=== PATIENT | female | born 1960 | race Caucasian/White ===

== ENCOUNTER 2022-06-01 09:18 | Inpatient (IN) | payer SELFPAY ==
[2022-06-01] MEDS ORDERED: Sodium Chloride 0.9% 10 ML Syringe FLUSH PRN ×2 (09:21→15:54)
[2022-06-01] MEDS ORDERED: Sodium Chloride 0.9% 2.5 ML Syringe FLUSH PRN ×2 (09:21→15:54)
[2022-06-01] MEDS ORDERED: Sodium Chloride 0.9% 1,000 ML IV ONE (09:22)
[2022-06-01] MEDS ORDERED: methylPREDNISolone Sodium Succinate 125 MG/2 ML SDV IVPUSH ONE (09:44)
[2022-06-01] MEDS ORDERED: Albuterol/Ipratropium 3.0-0.5 MG/3 ML Neb Soln NEB ONE ×2 (09:44→10:45)
[2022-06-01] MEDS ORDERED: Diltiazem 100 MG in Sodium Chloride 0.9% 100 ML IV SCH (09:45)
[2022-06-01] MEDS ORDERED: Cefepime 2 GM in Premix Bag 1 BAG IV ONE (10:00)
[2022-06-01] MEDS ORDERED: Cefepime 2 GM in Sodium Chloride 0.9% 50 ML IV ONE (10:15)
[2022-06-01 10:19] LABS: CORONAVIRUS COVID-19 NAA NEGATIVE (NEGATIVE); INFLUENZA A NAA NEGATIVE (NEGATIVE); INFLUENZA B NAA NEGATIVE (NEGATIVE); RESPIRATORY SYNCYTIAL VIR NAA NEGATIVE (NEGATIVE)
[2022-06-01 10:24] LABS: CARBON DIOXIDE,CO2 27.2 mmol/L (21.0-32.0); POTASSIUM,K 3.7 mmol/L (3.5-5.1)
[2022-06-01] MEDS ORDERED: Diltiazem 120 MG Cap.CD PO ONE ×2 (10:39→11:41)
[2022-06-01] MEDS ORDERED: Iopamidol 755 MG/ML 500 ML Multipack Bottle IVPUSH ONE (12:19)
[2022-06-01] MEDS ORDERED: Polyethylene Glycol 3350 Powder 17 GM Packet PO PRN (15:54)
[2022-06-01] MEDS ORDERED: Ondansetron 4 MG/2 ML SDV IVPUSH PRN (15:54)
[2022-06-01] MEDS: Piperacillin/Tazobactam 4.5 GM in Sodium Chloride 0.9% 100 ML IV SCH ×2 (17:03→21:38)
[2022-06-01] MEDS: methylPREDNISolone Sodium Succinate 40 MG/1 ML SDV IVPUSH SCH (17:57)
[2022-06-01] MEDS: Azithromycin 500 MG in Sodium Chloride 0.9% 250 ML IV SCH (18:00)
[2022-06-01] MEDS ORDERED: Magnesium Sulfate/Water 2 GM in Premix Bag 1 BAG IV ONE (19:00)
[2022-06-01] MEDS ORDERED: Docusate Sodium 100 MG Cap PO PRN (21:00)
[2022-06-01] MEDS: Heparin Sodium 5,000 Units/ML Vial SUBCUT SCH (21:37)
[2022-06-01] MEDS: Pantoprazole 40 MG in Sodium Chloride 0.9% 10 ML IVPUSH SCH (21:38)
[2022-06-01] MEDS: Lactated Ringers 1,000 ML IV SCH (21:39)
[2022-06-02] MEDS: Piperacillin/Tazobactam 4.5 GM in Sodium Chloride 0.9% 100 ML IV SCH ×4 (04:13→21:48)
[2022-06-02] MEDS: methylPREDNISolone Sodium Succinate 40 MG/1 ML SDV IVPUSH SCH ×2 (05:36→17:24)
[2022-06-02 06:58] LABS: CARBON DIOXIDE,CO2 25.8 mmol/L (21.0-32.0); POTASSIUM,K 3.7 mmol/L (3.5-5.1)
[2022-06-02] MEDS: Lactated Ringers 1,000 ML IV SCH ×2 (08:36→21:48)
[2022-06-02] MEDS: Diltiazem 120 MG Cap.CD PO SCH (08:39)
[2022-06-02] MEDS: Heparin Sodium 5,000 Units/ML Vial SUBCUT SCH ×2 (08:42→21:48)
[2022-06-02] MEDS: Azithromycin 500 MG in Sodium Chloride 0.9% 250 ML IV SCH (17:24)
[2022-06-02] MEDS: Pantoprazole 40 MG in Sodium Chloride 0.9% 10 ML IVPUSH SCH (21:48)
[2022-06-03] MEDS: Piperacillin/Tazobactam 4.5 GM in Sodium Chloride 0.9% 100 ML IV SCH (03:38)
[2022-06-03] MEDS: Albuterol/Ipratropium 3.0-0.5 MG/3 ML Neb Soln NEB PRN ×2 (03:38→11:09)
[2022-06-03] MEDS: methylPREDNISolone Sodium Succinate 40 MG/1 ML SDV IVPUSH SCH ×2 (06:11→17:29)
[2022-06-03 07:21] LABS: CARBON DIOXIDE,CO2 26.9 mmol/L (21.0-32.0); POTASSIUM,K 3.7 mmol/L (3.5-5.1)
[2022-06-03] MEDS: Heparin Sodium 5,000 Units/ML Vial SUBCUT SCH ×2 (08:05→21:47)
[2022-06-03] MEDS: Diltiazem 120 MG Cap.CD PO SCH (08:52)
[2022-06-03] MEDS: Lactated Ringers 1,000 ML IV SCH ×2 (09:10→19:35)
[2022-06-03] MEDS: cefTRIAXone 1 GM in Sodium Chloride 0.9% 50 ML IV SCH (10:56)
[2022-06-03] MEDS: Azithromycin 500 MG in Sodium Chloride 0.9% 250 ML IV SCH (17:34)
[2022-06-03] MEDS: Pantoprazole 40 MG in Sodium Chloride 0.9% 10 ML IVPUSH SCH (21:47)
[2022-06-04] MEDS: Albuterol/Ipratropium 3.0-0.5 MG/3 ML Neb Soln NEB PRN ×2 (05:40→17:43)
[2022-06-04] MEDS: methylPREDNISolone Sodium Succinate 40 MG/1 ML SDV IVPUSH SCH ×2 (06:01→17:43)
[2022-06-04 06:57] LABS: CARBON DIOXIDE,CO2 29.8 mmol/L (21.0-32.0); POTASSIUM,K 3.2 mmol/L (3.5-5.1)
[2022-06-04] MEDS: Lactated Ringers 1,000 ML IV SCH (07:47)
[2022-06-04] MEDS ORDERED: Potassium Chloride 20 MEQ Tab.ER PO ONE ×3 (08:00→14:15)
[2022-06-04] MEDS: Diltiazem 120 MG Cap.CD PO SCH (08:29)
[2022-06-04] MEDS: Heparin Sodium 5,000 Units/ML Vial SUBCUT SCH ×2 (08:30→21:41)
[2022-06-04] MEDS: cefTRIAXone 1 GM in Sodium Chloride 0.9% 50 ML IV SCH (10:41)
[2022-06-04] MEDS: Acetaminophen 325 MG Tab PO PRN (14:12)
[2022-06-04] MEDS: Azithromycin 500 MG in Sodium Chloride 0.9% 250 ML IV SCH (19:43)
[2022-06-04] MEDS: Pantoprazole 40 MG in Sodium Chloride 0.9% 10 ML IVPUSH SCH (21:37)
[2022-06-05] MEDS: methylPREDNISolone Sodium Succinate 40 MG/1 ML SDV IVPUSH SCH (06:25)
[2022-06-05 06:54] LABS: CARBON DIOXIDE,CO2 31.7 mmol/L (21.0-32.0); POTASSIUM,K 3.7 mmol/L (3.5-5.1)
[2022-06-05] MEDS: Diltiazem 120 MG Cap.CD PO SCH (08:43)
[2022-06-05] MEDS: Heparin Sodium 5,000 Units/ML Vial SUBCUT SCH ×2 (08:43→22:02)
[2022-06-05] MEDS ORDERED: Iron Polysaccharides Complex 150 MG Cap PO SCH (10:00)
[2022-06-05] MEDS: cefTRIAXone 1 GM in Sodium Chloride 0.9% 50 ML IV SCH ×2 (11:49→12:21)
[2022-06-05] MEDS: Iron Polysaccharides Complex 150 MG Cap PO SCH (12:21)
[2022-06-05] MEDS: Azithromycin 500 MG in Sodium Chloride 0.9% 250 ML IV SCH (18:05)
[2022-06-05] MEDS: Acetaminophen 325 MG Tab PO PRN (18:05)
[2022-06-05] MEDS: Albuterol/Ipratropium 3.0-0.5 MG/3 ML Neb Soln NEB PRN (22:01)
[2022-06-05] MEDS: Pantoprazole 40 MG in Sodium Chloride 0.9% 10 ML IVPUSH SCH (22:01)
[2022-06-06 06:49] LABS: CARBON DIOXIDE,CO2 33.9 mmol/L (21.0-32.0); POTASSIUM,K 3.4 mmol/L (3.5-5.1)
[2022-06-06] MEDS ORDERED: Potassium Chloride 20 MEQ Tab.ER PO ONE (07:48)
[2022-06-06] MEDS: Diltiazem 120 MG Cap.CD PO SCH (08:17)
[2022-06-06] MEDS: Iron Polysaccharides Complex 150 MG Cap PO SCH (08:18)
[2022-06-06] MEDS: Heparin Sodium 5,000 Units/ML Vial SUBCUT SCH ×2 (08:19→21:08)
[2022-06-06] MEDS: cefTRIAXone 1 GM in Sodium Chloride 0.9% 50 ML IV SCH (12:42)
[2022-06-06] MEDS: Azithromycin 500 MG in Sodium Chloride 0.9% 250 ML IV SCH (17:12)
[2022-06-06] MEDS: Acetaminophen 325 MG Tab PO PRN (19:26)
[2022-06-06] MEDS: Pantoprazole 40 MG Tab.CR PO SCH (21:08)
[2022-06-07] MEDS ORDERED: Potassium Chloride 20 MEQ Tab.ER PO ONE ×2 (07:05→09:30)
[2022-06-07 07:37] LABS: POTASSIUM,K 3.9 mmol/L (3.5-5.1)
[2022-06-07] MEDS: Heparin Sodium 5,000 Units/ML Vial SUBCUT SCH ×2 (09:21→21:20)
[2022-06-07] MEDS: Iron Polysaccharides Complex 150 MG Cap PO SCH (09:22)
[2022-06-07] MEDS: Diltiazem 120 MG Cap.CD PO SCH (09:28)
[2022-06-07] MEDS: cefTRIAXone 1 GM in Sodium Chloride 0.9% 50 ML IV SCH (13:23)
[2022-06-07] MEDS ORDERED: Cyclobenzaprine 5 MG Tab PO PRN (15:45)
[2022-06-07] MEDS ORDERED: traMADol 50 MG Tab PO ONE (15:49)
[2022-06-07] MEDS: Azithromycin 500 MG in Sodium Chloride 0.9% 250 ML IV SCH (18:14)
[2022-06-07] MEDS: Albuterol/Ipratropium 3.0-0.5 MG/3 ML Neb Soln NEB SCH ×2 (18:18→21:19)
[2022-06-07] MEDS ORDERED: Iopamidol 755 MG/ML 500 ML Multipack Bottle IVPUSH STA (20:44)
[2022-06-07] MEDS: Pantoprazole 40 MG Tab.CR PO SCH (21:19)
[2022-06-08 00:30] LABS: CORONAVIRUS COVID-19 NAA NEGATIVE (NEGATIVE); INFLUENZA A NAA NEGATIVE (NEGATIVE); INFLUENZA B NAA NEGATIVE (NEGATIVE); RESPIRATORY SYNCYTIAL VIR NAA NEGATIVE (NEGATIVE)
[2022-06-08] MEDS: Albuterol/Ipratropium 3.0-0.5 MG/3 ML Neb Soln NEB SCH ×6 (02:06→22:49)
[2022-06-08 05:41] LABS: CARBON DIOXIDE,CO2 33.2 mmol/L (21.0-32.0)
[2022-06-08] MEDS: Diltiazem 120 MG Cap.CD PO SCH (08:08)
[2022-06-08] MEDS: Iron Polysaccharides Complex 150 MG Cap PO SCH (08:08)
[2022-06-08] MEDS: Heparin Sodium 5,000 Units/ML Vial SUBCUT SCH ×2 (08:09→22:49)
[2022-06-08] MEDS ORDERED: Magnesium Sulfate/Water 2 GM in Premix Bag 1 BAG IV ONE (09:18)
[2022-06-08] MEDS: predniSONE 20 MG Tab PO SCH (09:34)
[2022-06-08] MEDS: cefTRIAXone 1 GM in Sodium Chloride 0.9% 50 ML IV SCH (12:33)
[2022-06-08] MEDS: Azithromycin 500 MG in Sodium Chloride 0.9% 250 ML IV SCH (17:05)
[2022-06-08] MEDS: Pantoprazole 40 MG Tab.CR PO SCH (22:49)
[2022-06-09] MEDS: Albuterol/Ipratropium 3.0-0.5 MG/3 ML Neb Soln NEB SCH ×4 (02:45→13:30)
[2022-06-09 06:38] LABS: CARBON DIOXIDE,CO2 31.5 mmol/L (21.0-32.0); POTASSIUM,K 3.5 mmol/L (3.5-5.1)
[2022-06-09] MEDS: predniSONE 20 MG Tab PO SCH (08:17)
[2022-06-09] MEDS: Diltiazem 120 MG Cap.CD PO SCH (08:17)
[2022-06-09] MEDS: Heparin Sodium 5,000 Units/ML Vial SUBCUT SCH (08:18)
[2022-06-09] MEDS: Iron Polysaccharides Complex 150 MG Cap PO SCH (08:18)
[2022-06-09] MEDS: cefTRIAXone 1 GM in Sodium Chloride 0.9% 50 ML IV SCH (11:48)
== END 2022-06-09 16:45 | disposition home health service (06) | DRG 177 ==
LOC: MW.ED 09:18 → MW.MS 10:51 → MW.ICU 06-07 18:02 → MW.MS 06-08 11:53
PROVIDERS: ADMIT Student in an Organized Health Care Education/Training Program; ATTEND Internal Medicine
DX: J69.0 Pneumonitis due to inhalation of food and vomit (principal); J96.01 Acute respiratory failure with hypoxia; M62.82 Rhabdomyolysis; J15.6 Pneumonia due to other Gram-negative bacteria; Z20.822 Contact with and (suspected) exposure to COVID-19; I48.91 Unspecified atrial fibrillation; I10 Essential (primary) hypertension; E78.00 Pure hypercholesterolemia, unspecified; J45.909 Unspecified asthma, uncomplicated; J43.9 Emphysema, unspecified; Z88.2 Allergy status to sulfonamides; Z88.1 Allergy status to other antibiotic agents; Z79.51 Long term (current) use of inhaled steroids; Z79.899 Other long term (current) drug therapy; Z87.891 Personal history of nicotine dependence; Z90.49 Acquired absence of other specified parts of digestive tract
CPT/HCPCS: 0241U; 36415; 36600; 71045; 71045-26; 71046; 71275; 71275-26; 80048; 80053; 80202; 81001; 82803; 82947; 83605; 83735; 83880; 84100; 84443; 84484; 85025; 87040; 87086; 87899; 92610-GN; 93005; 93306; 94640; 96365; 96367; 96368; 96375; 97110-GP; 97161-GP; 97530-GP; 99285-25; A9270-GY; C9113; J0456; J0692; J0696; J1644; J2543; J2920; J2930; J3370; J3475; J3490; J7030; J7050; J7120; J7620-GY; Q9967

== ENCOUNTER 2022-11-26 18:45 | Inpatient (IN) | payer MEDICAID ==
[2022-11-26] MEDS ORDERED: Albuterol/Ipratropium 3.0-0.5 MG/3 ML Neb Soln ONE (18:48)
[2022-11-26] MEDS ORDERED: Sodium Chloride 0.9% 2.5 ML Syringe FLUSH PRN (18:49)
[2022-11-26] MEDS ORDERED: Sodium Chloride 0.9% 10 ML Syringe FLUSH PRN (18:49)
[2022-11-26] MEDS ORDERED: Albuterol/Ipratropium 3.0-0.5 MG/3 ML Neb Soln NEB ONE (19:00)
[2022-11-26 19:04] LABS: BASOPHILS ABSOLUTE AUTO 0.1 K/uL (0.0-0.1); BASOPHILS PERCENT AUTO 0.4 % (0.0-1.5); EOSINOPHILS ABSOLUTE AUTO 0.1 K/uL (0.0-0.7); EOSINOPHILS PERCENT AUTO 0.6 % (0.0-7.0); HEMATOCRIT 38.8 % (36.0-46.0); LYMPHOCYTES ABSOLUTE AUTO 2.4 K/uL (0.6-2.4); LYMPHOCYTES PERCENT AUTO 20.2 % (16.0-40.0); MEAN CORPUSCULAR HEMOGLOBIN 29.7 pg (27.0-32.0); MEAN CORPUSCULAR HGB CONC 33.5 g/dL (31.0-37.0); MEAN CORPUSCULAR VOLUME 88.6 fL (80.0-98.0); MONOCYTES ABSOLUTE AUTO 0.8 K/uL (0.0-0.8); NEUTROPHILS ABSOLUTE AUTO 8.7 K/uL (1.4-5.7); NEUTROPHILS PERCENT AUTO 71.8 % (48.0-80.0); NRBC ABSOLUTE 0 K/uL; PLATELET COUNT,PLT 338 K/uL (150-400); RED BLOOD CELL COUNT 4.38 M/uL (4.30-5.90); WHITE BLOOD CELL COUNT,WBC 12.04 K/uL (4.0-11.0)
[2022-11-26 19:14] LABS: BASE EXCESS VENOUS -0.4 (-2.0-3.0); PH,VENOUS 7.33 (7.31-7.41)
[2022-11-26] MEDS ORDERED: Albuterol 0.083% 2.5 MG/3 ML Neb Soln NEB ONE (19:20)
[2022-11-26] MEDS ORDERED: methylPREDNISolone Sodium Succinate 125 MG/2 ML SDV IVPUSH ONE (19:21)
[2022-11-26 20:17] LABS: A/G RATIO 1.4 (0.9-1.6); ALBUMIN 4.5 g/dL (3.4-5.0); BILIRUBIN TOTAL 0.6 mg/dL (0.2-1.0); CALCIUM 10.2 mg/dL (8.5-10.1); CARBON DIOXIDE,CO2 24.2 mmol/L (21.0-32.0); CREATININE 0.9 mg/dL (0.6-1.0); EST CRCL DRUG DOSING (CG) 44.56 mL/min; POTASSIUM,K 4.3 mmol/L (3.5-5.1); PROTEIN TOTAL,TP 7.7 g/dL (6.4-8.2)
[2022-11-26 20:19] LABS: BICARBONATE,ARTERIAL 25 mEq/L (22-26); PCO2 ARTERIAL 43 mmHG (35-45); PO2 ARTERIAL 70 mmHG (80-105)
[2022-11-26 20:21] LABS: MAGNESIUM 1.6 mg/dL (1.8-2.4)
[2022-11-26] MEDS ORDERED: Ketorolac 30 MG/ML SDV IVPUSH ONE (20:26)
[2022-11-26] MEDS ORDERED: Iopamidol 755 MG/ML 500 ML Multipack Bottle IVPUSH ONE (21:32)
[2022-11-26] MEDS ORDERED: cefTRIAXone 1 GM in Sodium Chloride 0.9% 50 ML IV ONE (23:11)
[2022-11-27] MEDS ORDERED: Magnesium Sulfate/Water 2 GM in Premix Bag 1 BAG IV ONE (02:47)
[2022-11-27 06:11] LABS: BASOPHILS PERCENT AUTO 0.1 % (0.0-1.5); LYMPHOCYTES ABSOLUTE AUTO 0.6 K/uL (0.6-2.4); MEAN CORPUSCULAR HEMOGLOBIN 29.4 pg (27.0-32.0); MEAN CORPUSCULAR HGB CONC 33.3 g/dL (31.0-37.0); MEAN CORPUSCULAR VOLUME 88.2 fL (80.0-98.0); MONOCYTES ABSOLUTE AUTO 0.1 K/uL (0.0-0.8); MONOCYTES PERCENT AUTO 0.8 % (0.0-15.0); NEUTROPHILS ABSOLUTE AUTO 6.5 K/uL (1.4-5.7); NEUTROPHILS PERCENT AUTO 91.1 % (48.0-80.0); NRBC ABSOLUTE 0 K/uL; PLATELET COUNT,PLT 300 K/uL (150-400); RED BLOOD CELL COUNT 4.08 M/uL (4.30-5.90); WHITE BLOOD CELL COUNT,WBC 7.11 K/uL (4.0-11.0)
[2022-11-27 06:36] LABS: EST CRCL DRUG DOSING (CG) 46.11 mL/min; POTASSIUM,K 4.1 mmol/L (3.5-5.1)
[2022-11-27] MEDS ORDERED: methylPREDNISolone Sodium Succinate 40 MG/1 ML SDV IVPUSH ONE (10:00)
[2022-11-27] MEDS: Nicotine 21 MG/24 Hr Patch TRDERM SCH (10:15)
[2022-11-27] MEDS: Albuterol/Ipratropium 3.0-0.5 MG/3 ML Neb Soln NEB PRN (11:23)
[2022-11-27] MEDS: Acetaminophen 325 MG Tab PO PRN (17:45)
[2022-11-27] MEDS: cefTRIAXone 1 GM in Sodium Chloride 0.9% 50 ML IV SCH (22:42)
[2022-11-28] MEDS: Albuterol/Ipratropium 3.0-0.5 MG/3 ML Neb Soln NEB PRN (06:11)
[2022-11-28 06:34] LABS: BASOPHILS PERCENT AUTO 0.1 % (0.0-1.5); HEMOGLOBIN 11.8 g/dL (12.0-16.0); LYMPHOCYTES ABSOLUTE AUTO 1.5 K/uL (0.6-2.4); LYMPHOCYTES PERCENT AUTO 10.4 % (16.0-40.0); MEAN CORPUSCULAR HEMOGLOBIN 29.4 pg (27.0-32.0); MEAN CORPUSCULAR HGB CONC 32.8 g/dL (31.0-37.0); MEAN CORPUSCULAR VOLUME 89.8 fL (80.0-98.0); MONOCYTES ABSOLUTE AUTO 1.1 K/uL (0.0-0.8); MONOCYTES PERCENT AUTO 7.3 % (0.0-15.0); NEUTROPHILS ABSOLUTE AUTO 11.9 K/uL (1.4-5.7); NEUTROPHILS PERCENT AUTO 82.2 % (48.0-80.0); NRBC ABSOLUTE 0 K/uL; PLATELET COUNT,PLT 290 K/uL (150-400); RED BLOOD CELL COUNT 4.01 M/uL (4.30-5.90); WHITE BLOOD CELL COUNT,WBC 14.45 K/uL (4.0-11.0)
[2022-11-28 06:47] LABS: CALCIUM 10.1 mg/dL (8.5-10.1); CARBON DIOXIDE,CO2 27.5 mmol/L (21.0-32.0); CREATININE 0.8 mg/dL (0.6-1.0); EST CRCL DRUG DOSING (CG) 57.64 mL/min; POTASSIUM,K 4.7 mmol/L (3.5-5.1)
[2022-11-28] MEDS: Nicotine 21 MG/24 Hr Patch TRDERM SCH (08:09)
[2022-11-28] MEDS ORDERED: methylPREDNISolone Sodium Succinate 40 MG/1 ML SDV IM ONE (10:07)
[2022-11-28] MEDS: Acetaminophen 325 MG Tab PO PRN ×2 (11:59→17:15)
[2022-11-28] MEDS: methylPREDNISolone Sodium Succinate 40 MG/1 ML SDV IVPUSH SCH (12:00)
[2022-11-28] MEDS: Albuterol/Ipratropium 3.0-0.5 MG/3 ML Neb Soln NEB SCH ×4 (12:53→21:54)
[2022-11-28] MEDS: Ibuprofen 400 MG Tab PO PRN (18:44)
[2022-11-28] MEDS: cefTRIAXone 1 GM in Sodium Chloride 0.9% 50 ML IV SCH (22:00)
[2022-11-29] MEDS: Albuterol/Ipratropium 3.0-0.5 MG/3 ML Neb Soln NEB SCH ×6 (02:14→22:35)
[2022-11-29 06:48] LABS: BASOPHILS PERCENT AUTO 0.1 % (0.0-1.5); HEMATOCRIT 33.6 % (36.0-46.0); HEMOGLOBIN 10.9 g/dL (12.0-16.0); LYMPHOCYTES ABSOLUTE AUTO 1.1 K/uL (0.6-2.4); LYMPHOCYTES PERCENT AUTO 9.1 % (16.0-40.0); MEAN CORPUSCULAR HEMOGLOBIN 29.1 pg (27.0-32.0); MEAN CORPUSCULAR HGB CONC 32.4 g/dL (31.0-37.0); MEAN CORPUSCULAR VOLUME 89.6 fL (80.0-98.0); MONOCYTES ABSOLUTE AUTO 0.7 K/uL (0.0-0.8); MONOCYTES PERCENT AUTO 5.7 % (0.0-15.0); NEUTROPHILS ABSOLUTE AUTO 9.9 K/uL (1.4-5.7); NEUTROPHILS PERCENT AUTO 85.1 % (48.0-80.0); NRBC ABSOLUTE 0 K/uL; PLATELET COUNT,PLT 281 K/uL (150-400); RED BLOOD CELL COUNT 3.75 M/uL (4.30-5.90); WHITE BLOOD CELL COUNT,WBC 11.67 K/uL (4.0-11.0)
[2022-11-29 07:45] LABS: CALCIUM 9.3 mg/dL (8.5-10.1); CARBON DIOXIDE,CO2 27.5 mmol/L (21.0-32.0); CREATININE 0.8 mg/dL (0.6-1.0); EST CRCL DRUG DOSING (CG) 57.64 mL/min
[2022-11-29] MEDS ORDERED: Benzonatate 100 MG Cap PO PRN (08:02)
[2022-11-29] MEDS: Nicotine 21 MG/24 Hr Patch TRDERM SCH (08:35)
[2022-11-29] MEDS: methylPREDNISolone Sodium Succinate 40 MG/1 ML SDV IVPUSH SCH (08:35)
[2022-11-29] MEDS: Ibuprofen 400 MG Tab PO PRN ×2 (08:36→18:38)
[2022-11-29] MEDS: amLODIPine 5 MG Tab PO SCH (08:39)
[2022-11-29] MEDS: Acetaminophen 325 MG Tab PO PRN (12:58)
[2022-11-29] MEDS: cefTRIAXone 1 GM in Sodium Chloride 0.9% 50 ML IV SCH (22:35)
[2022-11-30] MEDS: Albuterol/Ipratropium 3.0-0.5 MG/3 ML Neb Soln NEB SCH ×6 (02:09→21:57)
[2022-11-30 06:23] LABS: HEMATOCRIT 34.3 % (36.0-46.0); HEMOGLOBIN 11.1 g/dL (12.0-16.0); LYMPHOCYTES ABSOLUTE AUTO 1.6 K/uL (0.6-2.4); LYMPHOCYTES PERCENT AUTO 14.2 % (16.0-40.0); MEAN CORPUSCULAR HEMOGLOBIN 29.2 pg (27.0-32.0); MEAN CORPUSCULAR HGB CONC 32.4 g/dL (31.0-37.0); MEAN CORPUSCULAR VOLUME 90.3 fL (80.0-98.0); MONOCYTES ABSOLUTE AUTO 0.8 K/uL (0.0-0.8); MONOCYTES PERCENT AUTO 7.1 % (0.0-15.0); NEUTROPHILS ABSOLUTE AUTO 8.9 K/uL (1.4-5.7); NEUTROPHILS PERCENT AUTO 78.7 % (48.0-80.0); NRBC ABSOLUTE 0 K/uL; PLATELET COUNT,PLT 302 K/uL (150-400); WHITE BLOOD CELL COUNT,WBC 11.36 K/uL (4.0-11.0)
[2022-11-30 06:48] LABS: CALCIUM 9.5 mg/dL (8.5-10.1); CARBON DIOXIDE,CO2 27.7 mmol/L (21.0-32.0); CREATININE 0.8 mg/dL (0.6-1.0); EST CRCL DRUG DOSING (CG) 57.64 mL/min; POTASSIUM,K 3.6 mmol/L (3.5-5.1)
[2022-11-30] MEDS: Ibuprofen 400 MG Tab PO PRN ×2 (07:40→15:41)
[2022-11-30] MEDS: amLODIPine 5 MG Tab PO SCH (08:22)
[2022-11-30] MEDS: Nicotine 21 MG/24 Hr Patch TRDERM SCH (08:23)
[2022-11-30] MEDS: methylPREDNISolone Sodium Succinate 40 MG/1 ML SDV IVPUSH SCH (08:27)
[2022-11-30] MEDS: Acetaminophen 325 MG Tab PO PRN ×2 (11:56→17:51)
[2022-11-30] MEDS: Iron Polysaccharides Complex 150 MG Cap PO SCH (12:22)
[2022-11-30] MEDS: cefTRIAXone 1 GM in Sodium Chloride 0.9% 50 ML IV SCH (22:00)
[2022-12-01] MEDS: Albuterol/Ipratropium 3.0-0.5 MG/3 ML Neb Soln NEB SCH ×6 (02:42→22:29)
[2022-12-01] MEDS: Ibuprofen 400 MG Tab PO PRN ×2 (06:01→13:43)
[2022-12-01 06:43] LABS: EOSINOPHILS PERCENT AUTO 0.1 % (0.0-7.0); HEMATOCRIT 35.1 % (36.0-46.0); HEMOGLOBIN 11.4 g/dL (12.0-16.0); LYMPHOCYTES PERCENT AUTO 17.5 % (16.0-40.0); MEAN CORPUSCULAR HGB CONC 32.5 g/dL (31.0-37.0); MEAN CORPUSCULAR VOLUME 89.3 fL (80.0-98.0); MONOCYTES ABSOLUTE AUTO 0.8 K/uL (0.0-0.8); MONOCYTES PERCENT AUTO 7.1 % (0.0-15.0); NEUTROPHILS ABSOLUTE AUTO 8.7 K/uL (1.4-5.7); NEUTROPHILS PERCENT AUTO 75.3 % (48.0-80.0); NRBC ABSOLUTE 0 K/uL; PLATELET COUNT,PLT 310 K/uL (150-400); RED BLOOD CELL COUNT 3.93 M/uL (4.30-5.90); WHITE BLOOD CELL COUNT,WBC 11.59 K/uL (4.0-11.0)
[2022-12-01 06:59] LABS: CALCIUM 9.4 mg/dL (8.5-10.1); CARBON DIOXIDE,CO2 26.4 mmol/L (21.0-32.0); CREATININE 0.9 mg/dL (0.6-1.0); EST CRCL DRUG DOSING (CG) 51.23 mL/min; POTASSIUM,K 3.5 mmol/L (3.5-5.1)
[2022-12-01] MEDS: amLODIPine 5 MG Tab PO SCH (08:42)
[2022-12-01] MEDS: Acetaminophen 325 MG Tab PO PRN ×2 (08:43→16:27)
[2022-12-01] MEDS: Iron Polysaccharides Complex 150 MG Cap PO SCH (08:44)
[2022-12-01] MEDS: Nicotine 21 MG/24 Hr Patch TRDERM SCH (08:45)
[2022-12-01] MEDS: methylPREDNISolone Sodium Succinate 40 MG/1 ML SDV IVPUSH SCH (08:47)
[2022-12-01] MEDS: cefTRIAXone 1 GM in Sodium Chloride 0.9% 50 ML IV SCH (22:29)
[2022-12-02] MEDS: Albuterol/Ipratropium 3.0-0.5 MG/3 ML Neb Soln NEB SCH ×6 (02:16→22:32)
[2022-12-02 06:42] LABS: BASOPHILS PERCENT AUTO 0.1 % (0.0-1.5); EOSINOPHILS PERCENT AUTO 0.1 % (0.0-7.0); HEMATOCRIT 35.2 % (36.0-46.0); HEMOGLOBIN 11.7 g/dL (12.0-16.0); LYMPHOCYTES ABSOLUTE AUTO 1.5 K/uL (0.6-2.4); LYMPHOCYTES PERCENT AUTO 8.8 % (16.0-40.0); MEAN CORPUSCULAR HEMOGLOBIN 29.5 pg (27.0-32.0); MEAN CORPUSCULAR HGB CONC 33.2 g/dL (31.0-37.0); MEAN CORPUSCULAR VOLUME 88.9 fL (80.0-98.0); MONOCYTES ABSOLUTE AUTO 1.1 K/uL (0.0-0.8); MONOCYTES PERCENT AUTO 6.3 % (0.0-15.0); NEUTROPHILS ABSOLUTE AUTO 14.8 K/uL (1.4-5.7); NEUTROPHILS PERCENT AUTO 84.7 % (48.0-80.0); NRBC ABSOLUTE 0 K/uL; PLATELET COUNT,PLT 326 K/uL (150-400); RED BLOOD CELL COUNT 3.96 M/uL (4.30-5.90); WHITE BLOOD CELL COUNT,WBC 17.49 K/uL (4.0-11.0)
[2022-12-02 07:05] LABS: CALCIUM 9.4 mg/dL (8.5-10.1); CARBON DIOXIDE,CO2 26.6 mmol/L (21.0-32.0); CREATININE 0.9 mg/dL (0.6-1.0); EST CRCL DRUG DOSING (CG) 51.23 mL/min; POTASSIUM,K 3.6 mmol/L (3.5-5.1)
[2022-12-02] MEDS: Acetaminophen 325 MG Tab PO PRN (07:57)
[2022-12-02] MEDS: methylPREDNISolone Sodium Succinate 40 MG/1 ML SDV IVPUSH SCH (08:01)
[2022-12-02] MEDS: amLODIPine 5 MG Tab PO SCH (08:02)
[2022-12-02] MEDS: Nicotine 21 MG/24 Hr Patch TRDERM SCH (08:03)
[2022-12-02] MEDS: Iron Polysaccharides Complex 150 MG Cap PO SCH (08:03)
[2022-12-02] MEDS: cefTRIAXone 1 GM in Sodium Chloride 0.9% 50 ML IV SCH (22:35)
[2022-12-02] MEDS ORDERED: Ondansetron 4 MG/2 ML SDV IVPUSH PRN (23:00)
[2022-12-03] MEDS: Albuterol/Ipratropium 3.0-0.5 MG/3 ML Neb Soln NEB SCH ×3 (02:13→10:25)
[2022-12-03 06:21] LABS: BASOPHILS PERCENT AUTO 0.1 % (0.0-1.5); EOSINOPHILS PERCENT AUTO 0.1 % (0.0-7.0); HEMOGLOBIN 11.5 g/dL (12.0-16.0); LYMPHOCYTES ABSOLUTE AUTO 1.7 K/uL (0.6-2.4); LYMPHOCYTES PERCENT AUTO 9.5 % (16.0-40.0); MEAN CORPUSCULAR HGB CONC 32.9 g/dL (31.0-37.0); MEAN CORPUSCULAR VOLUME 88.2 fL (80.0-98.0); MONOCYTES ABSOLUTE AUTO 1.6 K/uL (0.0-0.8); MONOCYTES PERCENT AUTO 8.9 % (0.0-15.0); NEUTROPHILS ABSOLUTE AUTO 14.3 K/uL (1.4-5.7); NEUTROPHILS PERCENT AUTO 81.4 % (48.0-80.0); NRBC ABSOLUTE 0 K/uL; PLATELET COUNT,PLT 320 K/uL (150-400); RED BLOOD CELL COUNT 3.97 M/uL (4.30-5.90); WHITE BLOOD CELL COUNT,WBC 17.51 K/uL (4.0-11.0)
[2022-12-03 06:37] LABS: CALCIUM 9.3 mg/dL (8.5-10.1); CARBON DIOXIDE,CO2 27.9 mmol/L (21.0-32.0); CREATININE 0.9 mg/dL (0.6-1.0); EST CRCL DRUG DOSING (CG) 51.23 mL/min
[2022-12-03] MEDS: Iron Polysaccharides Complex 150 MG Cap PO SCH (08:26)
[2022-12-03] MEDS: Nicotine 21 MG/24 Hr Patch TRDERM SCH (08:32)
[2022-12-03] MEDS: methylPREDNISolone Sodium Succinate 40 MG/1 ML SDV IVPUSH SCH (08:33)
[2022-12-03] MEDS: amLODIPine 5 MG Tab PO SCH (11:14)
== END 2022-12-03 14:45 | disposition home or self-care (01) | DRG 189 ==
LOC: MW.ED 18:45 → MW.MS 23:25
PROVIDERS: ADMIT Internal Medicine; ATTEND Internal Medicine
PROC: 5A09357 Assistance with Respiratory Ventilation, Less than 24 Consecutive Hours, Continuous Positive Airway Pressure (ICD-10-PCS; principal; 2022-11-26)
DX: J96.01 Acute respiratory failure with hypoxia (principal); J43.9 Emphysema, unspecified; T17.990A Other foreign object in respiratory tract, part unspecified in causing asphyxiation, initial encounter; I10 Essential (primary) hypertension; F17.210 Nicotine dependence, cigarettes, uncomplicated; I48.91 Unspecified atrial fibrillation; E78.00 Pure hypercholesterolemia, unspecified; Z20.822 Contact with and (suspected) exposure to COVID-19; Z99.81 Dependence on supplemental oxygen; Z88.2 Allergy status to sulfonamides; Z79.899 Other long term (current) drug therapy; Z90.49 Acquired absence of other specified parts of digestive tract; Z79.51 Long term (current) use of inhaled steroids
CPT/HCPCS: 36415; 36600; 71045; 71045-26; 71275; 71275-26; 80048; 80053; 82803; 83735; 83880; 84484; 85025; 93005; 93010; 94640; 94660; 96374; 96375; 97110-GP; 97161-GP; 99222; 99231; 99232; 99239; 99284; 99285-25; A9270-GY; J0696; J1885; J2405; J2920; J2930; J3475; J3490; J7620-GY; Q9967; U0002

== ENCOUNTER 2023-01-31 11:38 | Inpatient (IN) | payer MEDICAID ==
[2023-01-31] MEDS ORDERED: Albuterol 0.083% 2.5 MG/3 ML Neb Soln NEB ONE (11:47)
[2023-01-31] MEDS ORDERED: Albuterol/Ipratropium 3.0-0.5 MG/3 ML Neb Soln NEB ONE (11:47)
[2023-01-31] MEDS ORDERED: Sodium Chloride 0.9% 10 ML Syringe FLUSH PRN ×2 (11:48→14:04)
[2023-01-31] MEDS ORDERED: Sodium Chloride 0.9% 2.5 ML Syringe FLUSH PRN ×2 (11:48→14:04)
[2023-01-31] MEDS ORDERED: cefTRIAXone 2 GM in Sodium Chloride 0.9% 50 ML IV ONE (11:48)
[2023-01-31] MEDS ORDERED: Azithromycin 500 MG in Sodium Chloride 0.9% 250 ML IV ONE (11:49)
[2023-01-31 11:58] LABS: BICARBONATE,ARTERIAL 25 mEq/L (22-26); PCO2 ARTERIAL 40 mmHG (35-45); PO2 ARTERIAL 79 mmHG (80-105)
[2023-01-31 12:13] LABS: BASOPHILS ABSOLUTE AUTO 0.1 K/uL (0.0-0.1); BASOPHILS PERCENT AUTO 0.9 % (0.0-1.5); EOSINOPHILS ABSOLUTE AUTO 0.1 K/uL (0.0-0.7); EOSINOPHILS PERCENT AUTO 1.2 % (0.0-7.0); HEMOGLOBIN 12.2 g/dL (12.0-16.0); LYMPHOCYTES ABSOLUTE AUTO 2.2 K/uL (0.6-2.4); LYMPHOCYTES PERCENT AUTO 33.8 % (16.0-40.0); MEAN CORPUSCULAR HEMOGLOBIN 28.1 pg (27.0-32.0); MEAN CORPUSCULAR HGB CONC 31.3 g/dL (31.0-37.0); MEAN CORPUSCULAR VOLUME 89.9 fL (80.0-98.0); MONOCYTES ABSOLUTE AUTO 0.6 K/uL (0.0-0.8); MONOCYTES PERCENT AUTO 8.7 % (0.0-15.0); NEUTROPHILS ABSOLUTE AUTO 3.7 K/uL (1.4-5.7); NEUTROPHILS PERCENT AUTO 55.4 % (48.0-80.0); NRBC ABSOLUTE 0 K/uL; PLATELET COUNT,PLT 370 K/uL (150-400); RED BLOOD CELL COUNT 4.34 M/uL (4.30-5.90); WHITE BLOOD CELL COUNT,WBC 6.63 K/uL (4.0-11.0)
[2023-01-31 12:28] LABS: INR 0.98 (0.86-1.11)
[2023-01-31 12:39] LABS: CALCIUM 10.4 mg/dL (8.5-10.1); CARBON DIOXIDE,CO2 26.6 mmol/L (21.0-32.0); EST CRCL DRUG DOSING (CG) 41.32 mL/min; POTASSIUM,K 4.3 mmol/L (3.5-5.1)
[2023-01-31 12:42] LABS: LACTIC ACID 0.5 mmol/L (0.4-2.0)
[2023-01-31] MEDS ORDERED: Ondansetron 4 MG/2 ML SDV IVPUSH PRN (14:04)
[2023-01-31] MEDS ORDERED: Polyethylene Glycol 3350 Powder 17 GM Packet PO PRN (14:04)
[2023-01-31] MEDS ORDERED: Docusate Sodium 100 MG Cap PO PRN (14:04)
[2023-01-31 14:11] LABS: CORONAVIRUS COVID-19 NAA NEGATIVE (NEGATIVE); INFLUENZA A NAA NEGATIVE (NEGATIVE); INFLUENZA B NAA NEGATIVE (NEGATIVE); RESPIRATORY SYNCYTIAL VIR NAA NEGATIVE (NEGATIVE)
[2023-01-31] MEDS ORDERED: Sodium Chloride 0.9% 1,000 ML IV ONE (15:10)
[2023-01-31] MEDS: Heparin Sodium 5,000 Units/ML Vial SUBCUT SCH (15:56)
[2023-01-31] MEDS: Acetaminophen 325 MG Tab PO PRN (16:51)
[2023-01-31] MEDS: Albuterol/Ipratropium 3.0-0.5 MG/3 ML Neb Soln NEB SCH ×2 (17:05→21:36)
[2023-01-31] MEDS: methylPREDNISolone Sodium Succinate 40 MG/1 ML SDV IVPUSH SCH (17:34)
[2023-01-31] MEDS: Albuterol 0.083% 2.5 MG/3 ML Neb Soln NEB PRN (19:52)
[2023-01-31] MEDS: Acetaminophen/HYDROcodone 325-10 MG Tab PO PRN (19:52)
[2023-01-31] MEDS: Cefepime 2 GM in Sodium Chloride 0.9% 50 ML IV SCH (20:01)
[2023-02-01] MEDS: methylPREDNISolone Sodium Succinate 40 MG/1 ML SDV IVPUSH SCH ×2 (02:08→14:29)
[2023-02-01] MEDS: Albuterol/Ipratropium 3.0-0.5 MG/3 ML Neb Soln NEB SCH ×6 (02:08→21:32)
[2023-02-01] MEDS: Heparin Sodium 5,000 Units/ML Vial SUBCUT SCH ×2 (02:08→14:28)
[2023-02-01 06:33] LABS: BASOPHILS PERCENT AUTO 0.1 % (0.0-1.5); HEMATOCRIT 31.6 % (36.0-46.0); HEMOGLOBIN 9.9 g/dL (12.0-16.0); LYMPHOCYTES ABSOLUTE AUTO 0.7 K/uL (0.6-2.4); LYMPHOCYTES PERCENT AUTO 5.8 % (16.0-40.0); MEAN CORPUSCULAR HEMOGLOBIN 28.5 pg (27.0-32.0); MEAN CORPUSCULAR HGB CONC 31.3 g/dL (31.0-37.0); MEAN CORPUSCULAR VOLUME 91.1 fL (80.0-98.0); MONOCYTES ABSOLUTE AUTO 0.2 K/uL (0.0-0.8); MONOCYTES PERCENT AUTO 1.5 % (0.0-15.0); NEUTROPHILS ABSOLUTE AUTO 10.3 K/uL (1.4-5.7); NEUTROPHILS PERCENT AUTO 92.6 % (48.0-80.0); NRBC ABSOLUTE 0 K/uL; PLATELET COUNT,PLT 320 K/uL (150-400); RED BLOOD CELL COUNT 3.47 M/uL (4.30-5.90); WHITE BLOOD CELL COUNT,WBC 11.12 K/uL (4.0-11.0)
[2023-02-01 06:59] LABS: CALCIUM 9.7 mg/dL (8.5-10.1); CARBON DIOXIDE,CO2 20.6 mmol/L (21.0-32.0); EST CRCL DRUG DOSING (CG) 40.27 mL/min; MAGNESIUM 1.7 mg/dL (1.8-2.4); PHOSPHORUS 2.6 mg/dL (2.6-4.7)
[2023-02-01] MEDS: Iron Polysaccharides Complex 150 MG Cap PO SCH (08:06)
[2023-02-01] MEDS: Nicotine 21 MG/24 Hr Patch TRDERM SCH (08:06)
[2023-02-01] MEDS: Acetaminophen/HYDROcodone 325-10 MG Tab PO PRN ×2 (08:07→14:29)
[2023-02-01] MEDS: Tiotropium Bromide 4 GM Inhalation Spray (2.5mcg/1 dose; 10 doses) INH SCH (08:09)
[2023-02-01] MEDS: Cefepime 2 GM in Sodium Chloride 0.9% 50 ML IV SCH ×2 (08:14→21:35)
[2023-02-01] MEDS: amLODIPine 5 MG Tab PO SCH (08:17)
[2023-02-01] MEDS ORDERED: cefTRIAXone 1 GM in Sodium Chloride 0.9% 50 ML IV SCH (10:00)
[2023-02-01] MEDS ORDERED: Azithromycin 500 MG in Sodium Chloride 0.9% 250 ML IV SCH (12:00)
[2023-02-02] MEDS: methylPREDNISolone Sodium Succinate 40 MG/1 ML SDV IVPUSH SCH ×2 (02:26→14:48)
[2023-02-02] MEDS: Heparin Sodium 5,000 Units/ML Vial SUBCUT SCH ×2 (02:26→14:47)
[2023-02-02] MEDS: Albuterol/Ipratropium 3.0-0.5 MG/3 ML Neb Soln NEB SCH ×6 (02:26→22:13)
[2023-02-02 06:28] LABS: BASOPHILS PERCENT AUTO 0.1 % (0.0-1.5); HEMATOCRIT 31.6 % (36.0-46.0); LYMPHOCYTES ABSOLUTE AUTO 0.5 K/uL (0.6-2.4); LYMPHOCYTES PERCENT AUTO 2.9 % (16.0-40.0); MEAN CORPUSCULAR HEMOGLOBIN 28.7 pg (27.0-32.0); MEAN CORPUSCULAR HGB CONC 31.6 g/dL (31.0-37.0); MEAN CORPUSCULAR VOLUME 90.5 fL (80.0-98.0); MONOCYTES ABSOLUTE AUTO 0.4 K/uL (0.0-0.8); MONOCYTES PERCENT AUTO 2.2 % (0.0-15.0); NEUTROPHILS ABSOLUTE AUTO 15.2 K/uL (1.4-5.7); NEUTROPHILS PERCENT AUTO 94.8 % (48.0-80.0); NRBC ABSOLUTE 0 K/uL; PLATELET COUNT,PLT 316 K/uL (150-400); RED BLOOD CELL COUNT 3.49 M/uL (4.30-5.90); WHITE BLOOD CELL COUNT,WBC 16.07 K/uL (4.0-11.0)
[2023-02-02 06:43] LABS: CALCIUM 9.9 mg/dL (8.5-10.1); CARBON DIOXIDE,CO2 26.7 mmol/L (21.0-32.0); CREATININE 0.9 mg/dL (0.6-1.0); EST CRCL DRUG DOSING (CG) 44.75 mL/min; MAGNESIUM 1.9 mg/dL (1.8-2.4); POTASSIUM,K 4.7 mmol/L (3.5-5.1)
[2023-02-02] MEDS: Acetaminophen/HYDROcodone 325-10 MG Tab PO PRN (07:58)
[2023-02-02 08:02] LABS: BORDETELLA PARAPERT IS1001 Not Detected (Not Detected)
[2023-02-02] MEDS: Iron Polysaccharides Complex 150 MG Cap PO SCH (09:19)
[2023-02-02] MEDS: amLODIPine 5 MG Tab PO SCH (09:20)
[2023-02-02] MEDS: Cefepime 2 GM in Sodium Chloride 0.9% 50 ML IV SCH ×2 (09:23→21:23)
[2023-02-02] MEDS: Nicotine 21 MG/24 Hr Patch TRDERM SCH (09:23)
[2023-02-02] MEDS: Tiotropium Bromide 4 GM Inhalation Spray (2.5mcg/1 dose; 10 doses) INH SCH (09:34)
[2023-02-03] MEDS: methylPREDNISolone Sodium Succinate 40 MG/1 ML SDV IVPUSH SCH ×2 (02:34→17:02)
[2023-02-03] MEDS: Albuterol/Ipratropium 3.0-0.5 MG/3 ML Neb Soln NEB SCH ×6 (02:38→22:00)
[2023-02-03] MEDS: Heparin Sodium 5,000 Units/ML Vial SUBCUT SCH ×2 (02:38→16:57)
[2023-02-03 06:31] LABS: HEMATOCRIT 33.1 % (36.0-46.0); HEMOGLOBIN 10.5 g/dL (12.0-16.0); LYMPHOCYTES ABSOLUTE AUTO 0.5 K/uL (0.6-2.4); LYMPHOCYTES PERCENT AUTO 4.1 % (16.0-40.0); MEAN CORPUSCULAR HEMOGLOBIN 28.8 pg (27.0-32.0); MEAN CORPUSCULAR HGB CONC 31.7 g/dL (31.0-37.0); MEAN CORPUSCULAR VOLUME 90.7 fL (80.0-98.0); MONOCYTES ABSOLUTE AUTO 0.3 K/uL (0.0-0.8); MONOCYTES PERCENT AUTO 2.3 % (0.0-15.0); NEUTROPHILS ABSOLUTE AUTO 10.8 K/uL (1.4-5.7); NEUTROPHILS PERCENT AUTO 93.6 % (48.0-80.0); NRBC ABSOLUTE 0 K/uL; PLATELET COUNT,PLT 308 K/uL (150-400); RED BLOOD CELL COUNT 3.65 M/uL (4.30-5.90); WHITE BLOOD CELL COUNT,WBC 11.58 K/uL (4.0-11.0)
[2023-02-03 06:57] LABS: ALBUMIN 3.2 g/dL (3.4-5.0); BILIRUBIN TOTAL 0.4 mg/dL (0.2-1.0); CALCIUM 9.7 mg/dL (8.5-10.1); CARBON DIOXIDE,CO2 26.9 mmol/L (21.0-32.0); CREATININE 0.7 mg/dL (0.6-1.0); EST CRCL DRUG DOSING (CG) 57.53 mL/min; POTASSIUM,K 4.6 mmol/L (3.5-5.1); PROTEIN TOTAL,TP 6.4 g/dL (6.4-8.2)
[2023-02-03] MEDS: Iron Polysaccharides Complex 150 MG Cap PO SCH (09:20)
[2023-02-03] MEDS: amLODIPine 5 MG Tab PO SCH (09:20)
[2023-02-03] MEDS: Tiotropium Bromide 4 GM Inhalation Spray (2.5mcg/1 dose; 10 doses) INH SCH (09:24)
[2023-02-03] MEDS: Cefepime 2 GM in Sodium Chloride 0.9% 50 ML IV SCH ×2 (09:25→20:53)
[2023-02-03] MEDS: Nicotine 21 MG/24 Hr Patch TRDERM SCH (09:38)
[2023-02-03] MEDS: Acetaminophen 325 MG Tab PO PRN (15:33)
[2023-02-04] MEDS: methylPREDNISolone Sodium Succinate 40 MG/1 ML SDV IVPUSH SCH ×2 (02:44→14:06)
[2023-02-04] MEDS: Heparin Sodium 5,000 Units/ML Vial SUBCUT SCH (02:44)
[2023-02-04] MEDS: Albuterol/Ipratropium 3.0-0.5 MG/3 ML Neb Soln NEB SCH ×3 (02:44→14:15)
[2023-02-04] MEDS: Albuterol 0.083% 2.5 MG/3 ML Neb Soln NEB PRN (04:07)
[2023-02-04] MEDS: Acetaminophen 325 MG Tab PO PRN (04:27)
[2023-02-04 06:02] LABS: HEMATOCRIT 33.8 % (36.0-46.0); HEMOGLOBIN 10.7 g/dL (12.0-16.0); LYMPHOCYTES ABSOLUTE AUTO 0.4 K/uL (0.6-2.4); MEAN CORPUSCULAR HEMOGLOBIN 28.7 pg (27.0-32.0); MEAN CORPUSCULAR HGB CONC 31.7 g/dL (31.0-37.0); MEAN CORPUSCULAR VOLUME 90.6 fL (80.0-98.0); MONOCYTES ABSOLUTE AUTO 0.2 K/uL (0.0-0.8); MONOCYTES PERCENT AUTO 2.4 % (0.0-15.0); NEUTROPHILS ABSOLUTE AUTO 6.9 K/uL (1.4-5.7); NEUTROPHILS PERCENT AUTO 92.6 % (48.0-80.0); NRBC ABSOLUTE 0 K/uL; PLATELET COUNT,PLT 344 K/uL (150-400); RED BLOOD CELL COUNT 3.73 M/uL (4.30-5.90); WHITE BLOOD CELL COUNT,WBC 7.46 K/uL (4.0-11.0)
[2023-02-04 06:19] LABS: CALCIUM 9.8 mg/dL (8.5-10.1); CARBON DIOXIDE,CO2 27.9 mmol/L (21.0-32.0); CREATININE 0.8 mg/dL (0.6-1.0); EST CRCL DRUG DOSING (CG) 49.92 mL/min; POTASSIUM,K 4.1 mmol/L (3.5-5.1)
[2023-02-04] MEDS: Cefepime 2 GM in Sodium Chloride 0.9% 50 ML IV SCH (08:29)
[2023-02-04] MEDS: Nicotine 21 MG/24 Hr Patch TRDERM SCH (08:35)
[2023-02-04] MEDS: Iron Polysaccharides Complex 150 MG Cap PO SCH (08:40)
[2023-02-04] MEDS: amLODIPine 5 MG Tab PO SCH (08:40)
[2023-02-04] MEDS: Tiotropium Bromide 4 GM Inhalation Spray (2.5mcg/1 dose; 10 doses) INH SCH (08:41)
== END 2023-02-04 14:17 | disposition home or self-care (01) | DRG 189 ==
LOC: MW.ED 11:38 → MW.MS 13:28 → MW.ICU 14:16 → MW.MS 02-01 15:01
PROVIDERS: ADMIT Internal Medicine; ATTEND Internal Medicine
PROC: 4A033R1 Measurement of Arterial Saturation, Peripheral, Percutaneous Approach (ICD-10-PCS; principal; 2023-01-31)
DX: J96.21 Acute and chronic respiratory failure with hypoxia (principal); E43 Unspecified severe protein-calorie malnutrition; J44.1 Chronic obstructive pulmonary disease with (acute) exacerbation; Z68.1 Body mass index [BMI] 19.9 or less, adult; R64 Cachexia; I44.7 Left bundle-branch block, unspecified; I48.91 Unspecified atrial fibrillation; E78.00 Pure hypercholesterolemia, unspecified; I10 Essential (primary) hypertension; F17.200 Nicotine dependence, unspecified, uncomplicated; Z88.2 Allergy status to sulfonamides; Z88.8 Allergy status to other drugs, medicaments and biological substances; Z79.899 Other long term (current) drug therapy; Z90.49 Acquired absence of other specified parts of digestive tract; Z79.51 Long term (current) use of inhaled steroids
CPT/HCPCS: 0241U; 36415; 36600; 36620; 71045; 71045-26; 80048; 80053; 80202; 82803; 83605; 83735; 83880; 84100; 84145; 84484; 85025; 85610; 87040; 87077; 87154; 87186; 87486; 87581; 87633; 93010; 94640; 96365; 96368; 97162-GP; 99291; A9270-GY; J0456; J0692; J0696; J1644; J2920; J3370; J3490; J7030; J7050; J7620-GY